=== PATIENT | male | born 1985 | race Caucasian/White ===

== ENCOUNTER → 2019-04-26 | Day surgery (SDC) | payer OTHER ==
[~2019-04-26] MED LIST: CYCL10TA2 PO; HYDR-2761 PO; IV RINGERS,LACTATED 1000ML 1,000 ML IV ONE; OMEP20TA8 PO; PROPOFOL 20 ML IV ONE
[2019-04-26 13:15] VITALS: BP 115/65
--- NOTE | 2019-05-01 18:06 | PATHOLOGY ---
[facility] Accession Number: [id number] . 01 Material submitted: . esophagus - DISTAL ESOPHAGEAL BX. Modifiers: distal . 01 Clinical history: . Chronic heartburn . 02 Diagnosis: Esophageal biopsies, distal esophagus: - Segments of hyperplastic squamous esophageal mucosa and esophagogastric mucosa showing chronic inflammation, consistent with reflux esophagitis. - Superficial active chronic gastritis of gastric mucosa, with focal Helicobacter organisms identified. (JPM:[facility]/era 05/01/2019) [facility]/05/01/2019 . 02 Comment: Sections of the distal esophageal biopsy reveal two segments of tangentially oriented hyperplastic squamous esophageal mucosa, and a segment of esophagogastric mucosa consisting predominantly of gastric mucosa. There is moderate chronic inflammation at the esophagogastric junction. The remaining gastric mucosa shows superficial active chronic inflammation. A properly controlled immunoperoxidase stain for Helicobacter reveals focal Helicobacter organisms. There is no evidence of malignancy. . (JPM:[facility]/era 05/01/2019) . Special stain: Immunoperoxidase stain for Helicobacter on A1. . 02 Electronically signed: . Marquis Logan MD, Pathologist NPI- [id number] . 01 Gross description: . Received in formalin labeled "David Buckley, distal esophageal BX," are 3 segments of robert soft tissue measuring 0.8 x 0.8 x 0.3 cm in aggregate dimensions and ranging from 0.3 to 0.5 cm in maximum dimension. The specimen is submitted entirely in cassette A1. (TSD; 04/26/2019) TOB/TOB . 02 Pathologist provided ICD-10: K21.0 . 02 CPT . 084171, [id number] Specimen Comment: A courtesy copy of this report has been sent to Specimen Comment: [phone], . Specimen Comment: Report sent to and Performed at: 01 [facility] [address], [place] [id number] MD Lyle Escalante MD Phone: [phone] Performed at: 02 [facility] [address] [place], [place] [id number] MD Marquis Logan MD Phone: [phone]
== END ==
LOC: SURG 11:35
PROVIDERS: ATTEND Internal Medicine Gastroenterology
DX: K21.0 Gastro-esophageal reflux disease with esophagitis (principal); K29.50 Unspecified chronic gastritis without bleeding; D64.9 Anemia, unspecified; F41.9 Anxiety disorder, unspecified; F32.9 Major depressive disorder, single episode, unspecified; E78.00 Pure hypercholesterolemia, unspecified; Z88.8 Allergy status to other drugs, medicaments and biological substances; F15.90 Other stimulant use, unspecified, uncomplicated; Z98.890 Other specified postprocedural states
CPT/HCPCS: 43239; J2704; 88305; 88342